=== PATIENT | male | born 1940 | race Caucasian/White ===

== ENCOUNTER 2016-10-17 09:56 | Day surgery (SDC) | payer OTHER, BC ==
[~2016-10-17] VITALS: Ht 182.9 cm; Wt 99.8 kg
[~2016-10-17 09:56] MED LIST: AMITRIPTYLINE H10 MG PO; COMBIVENT RESPIM4 GM IH; CYANOCOBALAM1000 MCG PO; DUONEB 2.5-0.5 M3 ML AEROSOL; FISH OIL 1,2001 EAC4 PO; FUROSEMIDE40 MG PO; GLIMEPIRIDE4 MG PO; HYDROMORPHONE HC8 MG PO; KADIAN30 MG PO; LISINOPRIL-HCT1 EAC3 PO; METFORMIN HCL1000 MG PO; NITROSTAT0.4 MG SL; PRAVASTATIN SOD10 MG PO; PROVENTIL,2.5 MG/3 M IH; SYMBICORT60 INHALAT IH; TIZANIDINE HCL2 MG PO; VITAMIN B-6250 MG PO; VITAMIN D-32000 UNI2 PO
[2016-10-17 10:45] LABS: POINT-OF-CARE METER ID UU13113694
[2016-10-17 11:04] VITALS: BP 133/66
[2016-10-17 11:48] LABS: METH RESISTANT S AUREUS PCR NEGATIVE (NEGATIVE)
[2016-10-17 11:54] LABS: PROBE CHECK PASS; SPECIMEN PROCESSING CONTROL PASS
[2016-10-17 14:12] VITALS: BP 127/57
[2016-10-17 14:45] VITALS: BP 126/70
== END 2016-10-17 14:55 | disposition home or self-care (01) ==
LOC: SDC 09:56
PROVIDERS: Podiatrist Foot & Ankle Surgery
PROC: 0Y6X0Z0 Detachment at Right 5th Toe, Complete, Open Approach (ICD-10-PCS; principal; 2016-10-17)
PROC: 0QBN0ZZ Excision of Right Metatarsal, Open Approach (ICD-10-PCS; principal; 2016-10-17)
DX: E11.621 Type 2 diabetes mellitus with foot ulcer (principal); L97.512 Non-pressure chronic ulcer of other part of right foot with fat layer exposed; E11.40 Type 2 diabetes mellitus with diabetic neuropathy, unspecified; I10 Essential (primary) hypertension; J44.9 Chronic obstructive pulmonary disease, unspecified; G47.30 Sleep apnea, unspecified; E78.5 Hyperlipidemia, unspecified; Z83.3 Family history of diabetes mellitus; Z79.84 Long term (current) use of oral hypoglycemic drugs; Z82.49 Family history of ischemic heart disease and other diseases of the circulatory system; Z82.5 Family history of asthma and other chronic lower respiratory diseases
CPT/HCPCS: 82948; 87070; 87075; 87205; 87641; J2250; J2405; J3010; S0020

== ENCOUNTER 2017-03-26 10:34 | Day surgery (SDC) | payer OTHER, BC ==
[~2017-03-26] VITALS: Ht 182.9 cm; Wt 98.4 kg
[2017-03-26 11:06] LABS: POINT-OF-CARE METER ID UU14174212
== END 2017-03-26 12:25 | disposition home or self-care (01) ==
LOC: PAIN 10:34 → SDC 11:15 → PAIN 11:15
PROVIDERS: Anesthesiology Pain Medicine
DX: M47.812 Spondylosis without myelopathy or radiculopathy, cervical region (principal); M54.2 Cervicalgia; G89.29 Other chronic pain; M54.16 Radiculopathy, lumbar region; M48.061 Spinal stenosis, lumbar region without neurogenic claudication; I10 Essential (primary) hypertension; J44.9 Chronic obstructive pulmonary disease, unspecified; E11.621 Type 2 diabetes mellitus with foot ulcer; L97.509 Non-pressure chronic ulcer of other part of unspecified foot with unspecified severity; E11.40 Type 2 diabetes mellitus with diabetic neuropathy, unspecified; K21.9 Gastro-esophageal reflux disease without esophagitis; Z79.84 Long term (current) use of oral hypoglycemic drugs; G47.30 Sleep apnea, unspecified
CPT/HCPCS: 82948; 93005; J1030; J3010; S0020